=== PATIENT | male | born 1985 | race Caucasian/White ===

== ENCOUNTER 2021-01-19 14:21 | Emergency (ER) | payer OTHER ==
[2021-01-19 14:52] VITALS: BP 129/77
--- NOTE | 2021-01-19 16:05 | ED Physician Documentation ---
PD HPI OPHTHO - Stated complaint Stated Complaint: RT EYE PX - Chief complaint Chief Complaint: Heent - History obtained from History obtained from: Patient - Additional information Additional information: 35-year-old man presents with right eye itching after a cyst he has had for the past few weeks and the right eyelid burst at 11 AM today. He states that he had some purulent drainage and then some itching in the eye. Denies vision changes but does have some eye discharge. Denies other symptoms. Review of Systems Eyes: reports: Discharge, Irritation. denies: Loss of vision, Decreased vision, Photophobia PD PAST MEDICAL HISTORY - Allergies Allergies/Adverse Reactions: Allergies Allergy/AdvReac Type Severity Reaction Status Date / Time Sulfa (Sulfonamide Allergy Rash Verified 01/19/21 14:52 Antibiotics) Penicillins AdvReac Unknown Verified 01/19/21 14:52 PD ED PE NORMAL - Vitals Vital signs reviewed: Yes - General General: Alert and oriented X 3, No acute distress, Well developed/nourished - HEENT HEENT: Atraumatic, PERRL, EOMI, Other (Mild conjunctival injection. Fluorescein stain normal. No foreign body on eversion of the eyelids. First chalazion cyst visible to the right lateral inner upper eyelid.) - Neuro Neuro: Alert and oriented X 3 - Psych Psych: Normal mood, Normal affect Results - Vitals Vitals: Vital Signs - 24 hr 01/19/21 14:49 Temperature 36.4 C L Heart Rate 53 L Respiratory 16 Rate Blood Pressure 129/77 O2 Saturation 98 Oxygen O2 Source Room air PD MEDICAL DECISION MAKING - ED course ED course: 35-year-old man presents with a right eye chalazion that he has had for a few weeks that burst at 11 AM this morning. Patient states he has mild itching but otherwise feels well. Fluorescein test noncontributory. Advised warm com presses and Benadryl for the itching. Return precautions given. Patient will follow up outpatient ophthalmology as needed. Impression 1. ruptured chalazion Departure - Departure Disposition: 01 Home, Self Care Condition: Good Instructions: ED Chalazion Comments: You are seen in the emergency department for a ruptured chalazion cyst. Use warm compresses and benadryl as we discussed for symptom relief. Please return to the emergency department if you experience any new or worsening symptoms or have other concerns. Follow-up outpatient ophthalmology as needed.
== END 2021-01-19 16:06 | disposition home or self-care (01) ==
LOC: ED 14:21
DX: H00.11 Chalazion right upper eyelid (principal)
CPT/HCPCS: 99281